=== PATIENT | male | born 1980 | race Caucasian/White ===

== ENCOUNTER 2025-03-06 18:28 | Emergency (ER) | payer BC ==
[~2025-03-06] VITALS: Ht 175.3 cm; Wt 68.0 kg
[2025-03-06] MEDS ORDERED: IBUPROFEN 600 MG TABLET ONE (18:57)
[2025-03-06] MEDS ORDERED: HYDROCODONE/APAP 5/325MG TABLET ONE (18:57)
[2025-03-06] MEDS: IBUPROFEN 600 MG TABLET PO ONE (19:00)
[2025-03-06] MEDS: HYDROCODONE/APAP 5/325MG TABLET PO ONE (19:00)
[2025-03-06] MEDS ORDERED: IBUP-1490 PO (22:10)
[2025-03-06 22:28] VITALS: BP 133/78; TEMP 98.1; O2SAT 97
== END 2025-03-06 22:28 | disposition home or self-care (01) ==
LOC: ER 18:34
DX: S20.219A Contusion of unspecified front wall of thorax, initial encounter (principal); W11.XXXA Fall on and from ladder, initial encounter; Y93.89 Activity, other specified; Y92.89 Other specified places as the place of occurrence of the external cause; Y99.9 Unspecified external cause status
CPT/HCPCS: 99284; 71250; A6403